=== PATIENT | female | born 1960 | race Two or more races ===

== ENCOUNTER 2025-09-21 10:01 | Outpatient (CLI) | payer OTHER ==
--- NOTE | 2025-09-21 12:56 | DVH ---
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 Axial, coronal and sagittal multiplanar reformats were performed. Radiation Dose Information: CT Dose: CTDI volume is 14.36 mGy. Dose-length product is 2.54 mGy*cm The dose indicators for CT are the volume Computed Tomography (CT) Dose Index (CTDIvol) and the Dose Length Product (DLP), and are measured in units of mGy and mGy-cm, respectively. These indicators are not patient dose, but values generated from the CT scanner acquisition factors. The report includes radiation exposure data for exposures received during this examination. FINDINGS: Lower neck: Unremarkable. Lungs: No focal consolidation. Centrilobular emphysema. 0.7 cm ground-glass opacity in the right upper lobe, image 24 0.7 cm ground-glass opacity in the right upper lobe, image 29. Heart/Vascular Structures: Coronary artery calcifications. Total calcium score 56 (50-75th percentile). Lymph Nodes: No adenopathy Pleura: No pleural effusion or significant pneumothorax. Musculoskeletal: No acute osseous abnormality. Degenerative changes of the spine. Soft tissues: Normal. Upper abdomen: Limited portions of the upper abdomen are unremarkable. IMPRESSION: Centrilobular emphysema. 0.7 cm ground-glass opacity in the right upper lobe, image 24 0.7 cm ground- glass opacity in the right upper lobe, image 2 Coronary artery calcifications. Total calcium score 56 (50-75th percentile). Lung-RADS. Category 2:. Continue annual screening with LDCT. (version 1.1 addition). Radiation optimization: All CT scans at this facility use at least one of these dose optimization techniques: automated exposure control mA and/or kV adjustment per patient size (includes targeted exams where dose is matched to clinical indication) or iterative reconstruction.
== END 2025-09-21 17:00 | disposition home or self-care (01) ==
LOC: CT 10:01
DX: Z12.2 Encounter for screening for malignant neoplasm of respiratory organs (principal); J98.4 Other disorders of lung; I25.10 Atherosclerotic heart disease of native coronary artery without angina pectoris; M47.814 Spondylosis without myelopathy or radiculopathy, thoracic region; J43.2 Centrilobular emphysema
CPT/HCPCS: 71250